=== PATIENT | female | born 1930 | race Caucasian/White ===

== ENCOUNTER 2017-08-28 19:37 | Inpatient (IN) | payer MEDICARE, OTHER ==
[~2017-08-28] VITALS: Ht 165.1 cm; Wt 72.4 kg
[2017-08-28] MEDS ORDERED: GLARGINE INSULIN SUBCUT (20:24)
[2017-08-28] MEDS ORDERED: ALBU2.5V38 IH (20:24)
[2017-08-28] MEDS ORDERED: LORA10TA7 GT (20:24)
[2017-08-28] MEDS ORDERED: PANT40TA4 GT (20:24)
[2017-08-28] MEDS ORDERED: KEPPRA GT (20:24)
[2017-08-28] MEDS ORDERED: METO50TA16 GT (20:24)
[2017-08-28] MEDS ORDERED: METF500T6 PO (20:24)
[2017-08-28] MEDS ORDERED: CLOP75TA33 GT (20:24)
[2017-08-28] MEDS ORDERED: ONDA4TAB10 GT (20:24)
[2017-08-28] MEDS ORDERED: CALC-25 GT (20:24)
[2017-08-28] MEDS ORDERED: LISI2.5T2 GT (20:24)
[2017-08-28] MEDS ORDERED: GUAI600T53 GT (20:24)
[2017-08-28] MEDS ORDERED: ACET325T53 GT (20:24)
[2017-08-28] MEDS ORDERED: IV NORMAL SALINE 1000 ML BAG IV ONE ×2 (21:00→21:30)
[2017-08-28 21:09] LABS: BASOPHILS # (AUTO) 0.3 K/uL (0.0-8.0); BASOPHILS % (AUTO) 1.4 % (0.0-2.0); EOSINOPHILS # (AUTO) 0.1 K/uL (0.0-0.7); EOSINOPHILS % (AUTO) 0.4 % (0.0-7.0); HEMATOCRIT 22.9 % (31.2-41.9); LYMPHOCYTES # (AUTO) 2.8 K/uL (20.0-40.0); LYMPHOCYTES % (AUTO) 15.3 % (20.5-51.5); MEAN CORPUSCULAR HEMOGLOBIN 20.4 uug (24.7-32.8); MEAN CORPUSCULAR HGB CONC 30 g/dL (32.3-35.6); MONOCYTES # (AUTO) 1.5 K/uL (2.0-10.0); MONOCYTES % (AUTO) 8.1 % (0.0-11.0); NEUTROPHILS # (AUTO) 13.7 K/uL (1.8-8.9); NEUTROPHILS % (AUTO) 74.8 % (38.5-71.5); PLATELET COUNT (AUTO) 501 K/uL (179-408); RED BLOOD CELL COUNT(AUTO) 3.42 MIL/uL (3.63-4.92); WHITE BLOOD COUNT (AUTO) 18.3 K/uL (3.8-11.8)
[2017-08-28 21:18] LABS: CARBON DIOXIDE 27 mmol/L (21-32); CHLORIDE 103 mmol/L (98-107); CREATININE 0.8 mg/dL (0.6-1.3); GLUCOSE 123 mg/dL (74-106); POTASSIUM 4.4 mmol/L (3.5-5.1); UREA NITROGEN, BLOOD 28 mg/dL (7-18)
[2017-08-28 21:19] LABS: LYMPHOCYTES % (MANUAL) 15 % (20-40); NEUTROPHILS % (MANUAL) 75 % (42-75)
[2017-08-28 21:20] LABS: EOSINOPHILS % (MANUAL) 1 % (0-8); MONOCYTES % (MANUAL) 9 % (2-10)
[2017-08-28 21:31] LABS: ALANINE AMINOTRANSFERASE 16 U/L (14-59); ALKALINE PHOSPHATASE 93 U/L (50-136); ASPARTATE AMINOTRANSFERASE 6 U/L (15-37); BILIRUBIN,DIRECT 0.1 mg/dL (0.0-0.2); BILIRUBIN,TOTAL 0.2 mg/dL (0.2-1.0)
[2017-08-28] MEDS ORDERED: AMIKACIN SULFATE 500 MG/2 ML VIAL IV ONE (21:45)
[2017-08-28] MEDS ORDERED: PANTOPRAZOLE SODIUM 40 MG VIAL IV ONE (21:45)
[2017-08-28] MEDS ORDERED: PANTOPRAZOLE SODIUM 40 MG VIAL ONE (21:56)
[2017-08-28] MEDS ORDERED: AMIKACIN SULFATE 500 MG/2 ML VIAL ONE (21:56)
[2017-08-29] VITALS (9 sets, daily range): BP systolic 101–133; BP diastolic 41–67
[2017-08-29] MEDS ORDERED: ONDANSETRON 4 MG/2 ML VIAL IV PRN (01:15)
[2017-08-29] MEDS ORDERED: MAGNESIUM HYDROXIDE 30 ML LIQUID UDC PO PRN (01:15)
[2017-08-29] MEDS ORDERED: LINEZOLID IV 600 MG in PREMIXED 1 EACH IV SCH (01:15)
[2017-08-29] MEDS ORDERED: HYDROCODONE/APAP 5-325MG TABLET PO PRN (01:15)
[2017-08-29] MEDS ORDERED: ALBUTEROL SULFATE 2.5 MG/3 ML NEBU IH PRN (01:15)
[2017-08-29] MEDS ORDERED: ACETAMINOPHEN 325 MG TABLET PO PRN (01:15)
[2017-08-29] MEDS ORDERED: GUAIFENESIN LA 600 MG TABLET.SA PO PRN ×2 (01:15→07:30)
[2017-08-29] MEDS ORDERED: Z GUARD REMEDY PASTE 57 GM TUBE TOP PRN (01:15)
[2017-08-29] MEDS: IV NS 1000 ML 1,000 ML IV PRN ×2 (03:37→21:52)
[2017-08-29] MEDS ORDERED: METFORMIN HCL 500 MG TABLET PO SCH (08:00)
[2017-08-29] MEDS ORDERED: PANTOPRAZOLE SODIUM 40 MG TABLET.DR PO SCH ×2 (09:00)
[2017-08-29] MEDS ORDERED: GLARGINE INSULIN SUBCUT SCH (09:00)
[2017-08-29] MEDS ORDERED: [UNRECOGNIZED DRUG - OTHER] GT SCH (09:00)
[2017-08-29] MEDS ORDERED: KEPPRA GT SCH (09:00)
[2017-08-29] MEDS ORDERED: CALCIUM CARBONATE GT SCH (09:00)
[2017-08-29] MEDS ORDERED: VITAMIN D2 GT SCH (09:00)
[2017-08-29] MEDS: LORATADINE 10 MG TABLET GT SCH (09:43)
[2017-08-29] MEDS: LISINOPRIL 5 MG TABLET GT SCH (09:44)
[2017-08-29] MEDS: CALCIUM CARB/VITAMIN D 250MG-125UNITS TABLET GT SCH (09:44)
[2017-08-29] MEDS: METOPROLOL TARTRATE 50 MG TABLET GT SCH ×2 (09:44→21:24)
[2017-08-29] MEDS ORDERED: GLUCERNA 1.2 1000ML LIQUID GT PRN (10:15)
[2017-08-29] MEDS ORDERED: MAGNESIUM HYDROXIDE 30 ML LIQUID UDC GT PRN (11:04)
[2017-08-29] MEDS ORDERED: HYDROCODONE/APAP 5-325MG TABLET GT PRN (11:04)
[2017-08-29] MEDS ORDERED: GUAIFENESIN SUGAR FREE 100 MG/5 ML UDC PO PRN (11:15)
[2017-08-29] MEDS ORDERED: GUAIFENESIN SUGAR FREE 100 MG/5 ML UDC GT PRN (11:15)
[2017-08-29] MEDS ORDERED: ACETAMINOPHEN 650 MG/20.3 ML LIQUID UDC GT PRN (11:15)
[2017-08-29] MEDS ORDERED: ACETAMINOPHEN 650 MG/20.3 ML LIQUID UDC PO PRN (11:15)
[2017-08-29] MEDS: PANTOPRAZOLE ORAL SUSPENSION 40 MG SUSPDR.PKT GT SCH (12:42)
[2017-08-29] MEDS: LEVETIRACETAM 500 MG/5 ML LIQUID UDC GT SCH ×2 (12:42→21:23)
[2017-08-29 12:55] LABS: CARBON DIOXIDE 24 mmol/L (21-32); CHLORIDE 108 mmol/L (98-107); CREATININE 0.6 mg/dL (0.6-1.3); GLUCOSE 94 mg/dL (74-106); POTASSIUM 3.9 mmol/L (3.5-5.1); UREA NITROGEN, BLOOD 20 mg/dL (7-18)
[2017-08-29 12:59] LABS: BASOPHILS # (AUTO) 0.1 K/uL (0.0-8.0); BASOPHILS % (AUTO) 0.5 % (0.0-2.0); EOSINOPHILS # (AUTO) 0.2 K/uL (0.0-0.7); EOSINOPHILS % (AUTO) 1.1 % (0.0-7.0); LYMPHOCYTES # (AUTO) 3.1 K/uL (20.0-40.0); LYMPHOCYTES % (AUTO) 18.9 % (20.5-51.5); MEAN CORPUSCULAR HEMOGLOBIN 20.2 uug (24.7-32.8); MEAN CORPUSCULAR HGB CONC 30 g/dL (32.3-35.6); MEAN CORPUSCULAR VOLUME 67.7 fL (75.5-95.3); MONOCYTES # (AUTO) 1.5 K/uL (2.0-10.0); MONOCYTES % (AUTO) 9.1 % (0.0-11.0); NEUTROPHILS # (AUTO) 11.5 K/uL (1.8-8.9); NEUTROPHILS % (AUTO) 70.4 % (38.5-71.5); PLATELET COUNT (AUTO) 416 K/uL (179-408); RED BLOOD CELL COUNT(AUTO) 2.96 MIL/uL (3.63-4.92); WHITE BLOOD COUNT (AUTO) 16.4 K/uL (3.8-11.8)
[2017-08-29 13:01] LABS: ALANINE AMINOTRANSFERASE 14 U/L (14-59); ALKALINE PHOSPHATASE 81 U/L (50-136); ASPARTATE AMINOTRANSFERASE 11 U/L (15-37); BILIRUBIN,TOTAL 0.3 mg/dL (0.2-1.0); IRON, SERUM 13 ug/dL (50-175); MAGNESIUM 1.9 mg/dL (1.8-2.4); PHOSPHOROUS 2.5 mg/dL (2.5-4.9); TOTAL PROTEIN, SERUM 6.9 g/dL (6.4-8.2)
[2017-08-29 13:55] LABS: EOSINOPHILS % (MANUAL) 1 % (0-8); LYMPHOCYTES % (MANUAL) 21 % (20-40); MONOCYTES % (MANUAL) 9 % (2-10); NEUTROPHILS % (MANUAL) 69 % (42-75)
[2017-08-29] MEDS: LINEZOLID IV 600 MG in PREMIXED 1 EACH IV SCH (17:09)
[2017-08-29] MEDS: METFORMIN HCL 500 MG TABLET GT SCH (18:01)
[2017-08-29] MEDS ORDERED: DOSING PER PHARMACY-TOBRAMY NEB/INHALATION XX PRN (19:45)
[2017-08-29] MEDS ORDERED: NORMAL SALINE IV SCH (21:00)
[2017-08-29] MEDS ORDERED: TOBRAMYCIN SULFATE IV SCH (21:00)
[2017-08-29] MEDS: NORMAL SALINE IV SCH (21:52)
[2017-08-29] MEDS: TOBRAMYCIN SULFATE IV SCH (21:52)
[2017-08-29] MEDS ORDERED: DEXTROSE 50% 50 ML DISP.SYRIN IV PRN (22:00)
[2017-08-29] MEDS: INSULIN GLARGINE,HUM 300 UNITS/3 ML CARTRIDGE SQ SCH (22:25)
[2017-08-30] MEDS: BLOOD SUGAR DIAGNOSTIC 1 EACH STRIP VI SCH ×4 (00:49→17:49)
[2017-08-30] MEDS: LINEZOLID IV 600 MG in PREMIXED 1 EACH IV SCH ×2 (03:15→15:51)
[2017-08-30 04:00] VITALS: BP_SYST 119; BP_SYST 126; BP_DIAS 57; BP_DIAS 78
[2017-08-30] MEDS: PANTOPRAZOLE ORAL SUSPENSION 40 MG SUSPDR.PKT GT SCH (05:19)
[2017-08-30 06:27] LABS: BASOPHILS # (AUTO) 0.1 K/uL (0.0-8.0); BASOPHILS % (AUTO) 0.6 % (0.0-2.0); EOSINOPHILS # (AUTO) 0.2 K/uL (0.0-0.7); EOSINOPHILS % (AUTO) 1.2 % (0.0-7.0); HEMATOCRIT 25.5 % (31.2-41.9); HEMOGLOBIN 8.2 g/dL (10.9-14.3); LYMPHOCYTES # (AUTO) 2.2 K/uL (20.0-40.0); LYMPHOCYTES % (AUTO) 10.8 % (20.5-51.5); MEAN CORPUSCULAR HEMOGLOBIN 22.7 uug (24.7-32.8); MEAN CORPUSCULAR HGB CONC 32 g/dL (32.3-35.6); MEAN CORPUSCULAR VOLUME 70.8 fL (75.5-95.3); MONOCYTES % (AUTO) 10.1 % (0.0-11.0); NEUTROPHILS # (AUTO) 15.6 K/uL (1.8-8.9); NEUTROPHILS % (AUTO) 77.3 % (38.5-71.5); PLATELET COUNT (AUTO) 383 K/uL (179-408); RED BLOOD CELL COUNT(AUTO) 3.59 MIL/uL (3.63-4.92); WHITE BLOOD COUNT (AUTO) 20.2 K/uL (3.8-11.8)
[2017-08-30 08:10] LABS: BAND % (MANUAL) 2 % (0-10); EOSINOPHILS % (MANUAL) 2 % (0-8); LYMPHOCYTES % (MANUAL) 8 % (20-40); MONOCYTES % (MANUAL) 11 % (2-10); NEUTROPHILS % (MANUAL) 77 % (42-75)
[2017-08-30 08:33] LABS: THYROID STIMULATING HORMONE 3.476 mIU/mL (0.358-3.740)
[2017-08-30] MEDS: LEVETIRACETAM 500 MG/5 ML LIQUID UDC GT SCH ×2 (08:42→20:54)
[2017-08-30] MEDS: LORATADINE 10 MG TABLET GT SCH (08:42)
[2017-08-30] MEDS: CALCIUM CARB/VITAMIN D 250MG-125UNITS TABLET GT SCH (08:42)
[2017-08-30] MEDS: METFORMIN HCL 500 MG TABLET GT SCH ×2 (08:42→17:50)
[2017-08-30] MEDS: LISINOPRIL 5 MG TABLET GT SCH (08:50)
[2017-08-30] MEDS: METOPROLOL TARTRATE 50 MG TABLET GT SCH ×2 (08:51→20:57)
[2017-08-30 08:56] LABS: CARBON DIOXIDE 21 mmol/L (21-32); CHLORIDE 105 mmol/L (98-107); CHOLESTEROL 89 mg/dL (<200); CREATININE 0.8 mg/dL (0.6-1.3); GLUCOSE 129 mg/dL (74-106); HDL CHOLESTEROL 27 mg/dL (40-60); MAGNESIUM 1.7 mg/dL (1.8-2.4); PHOSPHOROUS 2.7 mg/dL (2.5-4.9); POTASSIUM 3.9 mmol/L (3.5-5.1); TRIGLYCERIDES 104 MG/DL (30-150); UREA NITROGEN, BLOOD 15 mg/dL (7-18)
[2017-08-30] MEDS ORDERED: MAGNESIUM OXIDE 400 MG TABLET GT ONE (10:15)
[2017-08-30 11:04] VITALS: BP 115/50
[2017-08-30] MEDS: NORMAL SALINE IV SCH (12:40)
[2017-08-30] MEDS: TOBRAMYCIN SULFATE IV SCH (12:40)
[2017-08-30] MEDS ORDERED: FUROSEMIDE 20 MG/2 ML VIAL IV ONE (14:45)
[2017-08-30 16:24] VITALS: BP 109/46
[2017-08-30] MEDS: INSULIN REGULAR, HUMAN 300 UNIT/3 ML VIAL SQ PRN (17:55)
[2017-08-30 19:40] VITALS: BP 123/48
[2017-08-30] MEDS: MUPIROCIN 2% OINT 22 GM TUBE NS SCH (20:54)
[2017-08-30] MEDS: INSULIN GLARGINE,HUM 300 UNITS/3 ML CARTRIDGE SQ SCH (21:25)
[2017-08-31] MEDS: BLOOD SUGAR DIAGNOSTIC 1 EACH STRIP VI SCH ×4 (01:03→18:13)
[2017-08-31] MEDS: NORMAL SALINE IV SCH ×2 (01:04→15:53)
[2017-08-31] MEDS: TOBRAMYCIN SULFATE IV SCH ×2 (01:04→15:53)
[2017-08-31] MEDS: LINEZOLID IV 600 MG in PREMIXED 1 EACH IV SCH (03:06)
[2017-08-31 04:04] VITALS: BP 122/55
[2017-08-31] MEDS: PANTOPRAZOLE ORAL SUSPENSION 40 MG SUSPDR.PKT GT SCH (05:38)
[2017-08-31 07:10] LABS: BASOPHILS # (AUTO) 0.1 K/uL (0.0-8.0); BASOPHILS % (AUTO) 0.6 % (0.0-2.0); EOSINOPHILS # (AUTO) 0.4 K/uL (0.0-0.7); EOSINOPHILS % (AUTO) 2.5 % (0.0-7.0); HEMATOCRIT 28.7 % (31.2-41.9); HEMOGLOBIN 8.8 g/dL (10.9-14.3); LYMPHOCYTES % (AUTO) 12.2 % (20.5-51.5); MEAN CORPUSCULAR HEMOGLOBIN 22.2 uug (24.7-32.8); MEAN CORPUSCULAR HGB CONC 31 g/dL (32.3-35.6); MEAN CORPUSCULAR VOLUME 72.1 fL (75.5-95.3); MONOCYTES # (AUTO) 1.4 K/uL (2.0-10.0); MONOCYTES % (AUTO) 8.6 % (0.0-11.0); NEUTROPHILS # (AUTO) 12.5 K/uL (1.8-8.9); NEUTROPHILS % (AUTO) 76.1 % (38.5-71.5); PLATELET COUNT (AUTO) 410 K/uL (179-408); RED BLOOD CELL COUNT(AUTO) 3.98 MIL/uL (3.63-4.92); WHITE BLOOD COUNT (AUTO) 16.5 K/uL (3.8-11.8)
[2017-08-31 07:21] LABS: ALANINE AMINOTRANSFERASE 18 U/L (14-59); ALKALINE PHOSPHATASE 106 U/L (50-136); ASPARTATE AMINOTRANSFERASE 18 U/L (15-37); BILIRUBIN,TOTAL 0.4 mg/dL (0.2-1.0); CARBON DIOXIDE 26 mmol/L (21-32); CHLORIDE 101 mmol/L (98-107); CREATININE 0.8 mg/dL (0.6-1.3); GLUCOSE 146 mg/dL (74-106); MAGNESIUM 1.8 mg/dL (1.8-2.4); PHOSPHOROUS 3.3 mg/dL (2.5-4.9); POTASSIUM 3.2 mmol/L (3.5-5.1); TOTAL PROTEIN, SERUM 7.6 g/dL (6.4-8.2); UREA NITROGEN, BLOOD 11 mg/dL (7-18)
[2017-08-31 07:59] LABS: EOSINOPHILS % (MANUAL) 3 % (0-8); LYMPHOCYTES % (MANUAL) 12 % (20-40); MONOCYTES % (MANUAL) 9 % (2-10); NEUTROPHILS % (MANUAL) 76 % (42-75)
[2017-08-31] MEDS: METFORMIN HCL 500 MG TABLET GT SCH ×2 (08:08→18:40)
[2017-08-31] MEDS: IV NS 1000 ML 1,000 ML IV PRN (09:21)
[2017-08-31] MEDS: CALCIUM CARB/VITAMIN D 250MG-125UNITS TABLET GT SCH (09:22)
[2017-08-31] MEDS: METOPROLOL TARTRATE 50 MG TABLET GT SCH ×2 (09:30→20:22)
[2017-08-31] MEDS ORDERED: POTASSIUM CHLORIDE 20 MEQ POWDER PACKET GT ONE (09:30)
[2017-08-31] MEDS: LORATADINE 10 MG TABLET GT SCH (09:30)
[2017-08-31] MEDS: LEVETIRACETAM 500 MG/5 ML LIQUID UDC GT SCH ×2 (09:31→20:19)
[2017-08-31] MEDS: LISINOPRIL 5 MG TABLET GT SCH (09:31)
[2017-08-31] MEDS: MUPIROCIN 2% OINT 22 GM TUBE NS SCH ×2 (09:46→20:22)
[2017-08-31] MEDS ORDERED: GLUCERNA 1.2 1000ML LIQUID GT PRN (09:53)
[2017-08-31 11:09] VITALS: BP 129/55
[2017-08-31] MEDS: INSULIN REGULAR, HUMAN 300 UNIT/3 ML VIAL SQ PRN ×2 (11:51→18:40)
[2017-08-31 15:10] VITALS: BP 139/64
[2017-08-31 19:00] VITALS: BP 134/76
[2017-08-31] MEDS: LINEZOLID 600 MG TABLET PO SCH (20:19)
[2017-08-31] MEDS: INSULIN GLARGINE,HUM 300 UNITS/3 ML CARTRIDGE SQ SCH (20:28)
[2017-09-01] MEDS: BLOOD SUGAR DIAGNOSTIC 1 EACH STRIP VI SCH ×4 (00:11→17:22)
[2017-09-01] MEDS: IV NS 1000 ML 1,000 ML IV PRN ×2 (00:12→15:12)
[2017-09-01] MEDS: TOBRAMYCIN SULFATE IV SCH ×2 (01:16→14:14)
[2017-09-01] MEDS: NORMAL SALINE IV SCH ×2 (01:16→14:14)
[2017-09-01 04:00] VITALS: BP 135/60
[2017-09-01] MEDS: PANTOPRAZOLE ORAL SUSPENSION 40 MG SUSPDR.PKT GT SCH (05:37)
[2017-09-01 06:37] LABS: BASOPHILS # (AUTO) 0.1 K/uL (0.0-8.0); BASOPHILS % (AUTO) 0.8 % (0.0-2.0); EOSINOPHILS # (AUTO) 0.6 K/uL (0.0-0.7); EOSINOPHILS % (AUTO) 3.2 % (0.0-7.0); HEMATOCRIT 27.9 % (31.2-41.9); HEMOGLOBIN 8.8 g/dL (10.9-14.3); LYMPHOCYTES # (AUTO) 2.5 K/uL (20.0-40.0); LYMPHOCYTES % (AUTO) 14.5 % (20.5-51.5); MEAN CORPUSCULAR HEMOGLOBIN 22.8 uug (24.7-32.8); MEAN CORPUSCULAR HGB CONC 32 g/dL (32.3-35.6); MEAN CORPUSCULAR VOLUME 71.9 fL (75.5-95.3); MONOCYTES # (AUTO) 1.2 K/uL (2.0-10.0); MONOCYTES % (AUTO) 6.9 % (0.0-11.0); NEUTROPHILS # (AUTO) 13.1 K/uL (1.8-8.9); NEUTROPHILS % (AUTO) 74.6 % (38.5-71.5); PLATELET COUNT (AUTO) 378 K/uL (179-408); RED BLOOD CELL COUNT(AUTO) 3.89 MIL/uL (3.63-4.92); WHITE BLOOD COUNT (AUTO) 17.6 K/uL (3.8-11.8)
[2017-09-01 07:03] LABS: ALANINE AMINOTRANSFERASE 14 U/L (14-59); ALKALINE PHOSPHATASE 95 U/L (50-136); ASPARTATE AMINOTRANSFERASE 12 U/L (15-37); BILIRUBIN,TOTAL 0.4 mg/dL (0.2-1.0); CARBON DIOXIDE 27 mmol/L (21-32); CHLORIDE 105 mmol/L (98-107); CREATININE 0.8 mg/dL (0.6-1.3); GLUCOSE 137 mg/dL (74-106); MAGNESIUM 1.8 mg/dL (1.8-2.4); PHOSPHOROUS 2.9 mg/dL (2.5-4.9); POTASSIUM 4.2 mmol/L (3.5-5.1); TOTAL PROTEIN, SERUM 7.2 g/dL (6.4-8.2); UREA NITROGEN, BLOOD 15 mg/dL (7-18)
[2017-09-01] MEDS: LORATADINE 10 MG TABLET GT SCH (09:04)
[2017-09-01] MEDS: LEVETIRACETAM 500 MG/5 ML LIQUID UDC GT SCH ×2 (09:05→20:28)
[2017-09-01] MEDS: LISINOPRIL 5 MG TABLET GT SCH (09:07)
[2017-09-01] MEDS: CALCIUM CARB/VITAMIN D 250MG-125UNITS TABLET GT SCH (09:07)
[2017-09-01] MEDS: LINEZOLID 600 MG TABLET PO SCH ×2 (09:07→20:28)
[2017-09-01] MEDS: METOPROLOL TARTRATE 50 MG TABLET GT SCH ×2 (09:07→20:28)
[2017-09-01] MEDS: MUPIROCIN 2% OINT 22 GM TUBE NS SCH ×2 (09:09→20:29)
[2017-09-01 11:34] VITALS: BP 138/72
[2017-09-01] MEDS: INSULIN REGULAR, HUMAN 300 UNIT/3 ML VIAL SQ PRN (11:45)
[2017-09-01 15:44] VITALS: BP 143/72
[2017-09-01 19:00] VITALS: BP 140/60
[2017-09-01] MEDS: INSULIN GLARGINE,HUM 300 UNITS/3 ML CARTRIDGE SQ SCH (20:30)
[2017-09-01] MEDS ORDERED: FUROSEMIDE 20 MG/2 ML VIAL IV ONE (20:30)
[2017-09-01] MEDS: ACIDOPHILUS/BULGARICUS CHEW TAB GT SCH (22:00)
[2017-09-02] MEDS: NORMAL SALINE IV SCH ×2 (02:13→14:39)
[2017-09-02] MEDS: TOBRAMYCIN SULFATE IV SCH ×2 (02:13→14:39)
[2017-09-02 04:00] VITALS: BP_SYST 135; BP_SYST 137; BP_DIAS 50; BP_DIAS 65
[2017-09-02] MEDS: PANTOPRAZOLE ORAL SUSPENSION 40 MG SUSPDR.PKT GT SCH (06:06)
[2017-09-02 06:48] LABS: CARBON DIOXIDE 28 mmol/L (21-32); CHLORIDE 103 mmol/L (98-107); CREATININE 0.7 mg/dL (0.6-1.3); GLUCOSE 126 mg/dL (74-106); MAGNESIUM 1.8 mg/dL (1.8-2.4); PHOSPHOROUS 3.8 mg/dL (2.5-4.9); POTASSIUM 3.8 mmol/L (3.5-5.1); UREA NITROGEN, BLOOD 14 mg/dL (7-18); URIC ACID 4.7 mg/dL (2.6-6.0)
[2017-09-02 06:51] LABS: BASOPHILS # (AUTO) 0.1 K/uL (0.0-8.0); BASOPHILS % (AUTO) 0.5 % (0.0-2.0); EOSINOPHILS # (AUTO) 0.7 K/uL (0.0-0.7); EOSINOPHILS % (AUTO) 4.4 % (0.0-7.0); HEMATOCRIT 27.2 % (31.2-41.9); HEMOGLOBIN 8.7 g/dL (10.9-14.3); LYMPHOCYTES # (AUTO) 2.7 K/uL (20.0-40.0); LYMPHOCYTES % (AUTO) 17.9 % (20.5-51.5); MEAN CORPUSCULAR HEMOGLOBIN 22.8 uug (24.7-32.8); MEAN CORPUSCULAR HGB CONC 32 g/dL (32.3-35.6); MEAN CORPUSCULAR VOLUME 70.9 fL (75.5-95.3); MONOCYTES # (AUTO) 1.4 K/uL (2.0-10.0); MONOCYTES % (AUTO) 9.1 % (0.0-11.0); NEUTROPHILS # (AUTO) 10.3 K/uL (1.8-8.9); NEUTROPHILS % (AUTO) 68.1 % (38.5-71.5); PLATELET COUNT (AUTO) 438 K/uL (179-408); RED BLOOD CELL COUNT(AUTO) 3.83 MIL/uL (3.63-4.92); WHITE BLOOD COUNT (AUTO) 15.2 K/uL (3.8-11.8)
[2017-09-02 07:06] LABS: *BILIRUBIN,URIN NEGATIVE (NEGATIVE); *BLOOD, URINE 1+ (NEGATIVE); *CLARITY,URINE CLOUDY (CLEAR); *COLOR,URINE YELLOW (YELLOW); *KETONES,URINE NEGATIVE (NEGATIVE); *PROTEIN,URINE NEGATIVE (NEGATIVE); *UROBILINOGEN,URINE 0.2 E.U./dl (NORMAL); LEUKOCYTE ESTERASE ,URINE 2+ (NEGATIVE); NITRITE, URINE NEGATIVE (NEGATIVE); PH,URINE 7.5 (5.0-8.0); UGLUCOSE NEGATIVE (NEGATIVE)
[2017-09-02 07:18] LABS: BACTERIA,URINE FEW /HPF (NONE SEEN); SQUAMOUS EPITHELIAL CELL,UR FEW /HPF (NONE SEEN); WBC,URINE 20-50 /HPF (0-3)
[2017-09-02 07:44] LABS: BAND % (MANUAL) 2 % (0-10); EOSINOPHILS % (MANUAL) 5 % (0-8); LYMPHOCYTES % (MANUAL) 19 % (20-40); MONOCYTES % (MANUAL) 7 % (2-10); NEUTROPHILS % (MANUAL) 67 % (42-75)
[2017-09-02] MEDS: LINEZOLID 600 MG TABLET PO SCH (08:06)
[2017-09-02] MEDS: LEVETIRACETAM 500 MG/5 ML LIQUID UDC GT SCH (08:06)
[2017-09-02] MEDS: METOPROLOL TARTRATE 50 MG TABLET GT SCH (08:07)
[2017-09-02] MEDS: ACIDOPHILUS/BULGARICUS CHEW TAB GT SCH (08:07)
[2017-09-02] MEDS: CALCIUM CARB/VITAMIN D 250MG-125UNITS TABLET GT SCH (08:07)
[2017-09-02] MEDS: LISINOPRIL 5 MG TABLET GT SCH (08:07)
[2017-09-02] MEDS: LORATADINE 10 MG TABLET GT SCH (08:07)
[2017-09-02] MEDS: MUPIROCIN 2% OINT 22 GM TUBE NS SCH (08:10)
[2017-09-02 08:26] LABS: *OCCULT BLOOD STOOL NEGATIVE (NEGATIVE)
[2017-09-02] MEDS ORDERED: SOD FERRIC GLUC COMPLX/SUCROSE 125 MG in IV NORMAL SALINE 100 ML IV ONE (10:00)
[2017-09-02] MEDS ORDERED: FUROSEMIDE 20 MG/2 ML VIAL IV ONE (10:45)
[2017-09-02 11:22] VITALS: BP 139/67
[2017-09-02] MEDS ORDERED: LEVE100S GT (15:02)
[2017-09-02] MEDS ORDERED: ACID1TAB4 GT (15:02)
[2017-09-02] MEDS ORDERED: MULT1TAB73 GT (15:02)
[2017-09-02] MEDS ORDERED: TOBR40VI2 XX (15:02)
[2017-09-02] MEDS ORDERED: NUT.237L30 GT (15:02)
[2017-09-02] MEDS ORDERED: ACET650S26 GT (15:02)
[2017-09-02] MEDS ORDERED: MAGN400O6 GT (15:02)
[2017-09-02] MEDS ORDERED: Insulin Glargine,Hum SQ (15:02)
[2017-09-02] MEDS ORDERED: LINE600T PO (15:02)
[2017-09-02] MEDS ORDERED: METO50TA16 GT (15:02)
[2017-09-02] MEDS ORDERED: FURO-152 GT (15:03)
[2017-09-02] MEDS ORDERED: POTA10TA15 GT (15:04)
[2017-09-02 15:18] VITALS: BP 148/61
[2017-09-02 18:18] VITALS: BP 142/59
[2017-09-02] MEDS ORDERED: INSULIN GLARGINE,HUM 300 UNITS/3 ML CARTRIDGE SQ SCH (21:00)
== END 2017-09-02 18:15 | DRG 871 ==
LOC: ER 19:37 → TELE 08-29 01:55 → MED 08-29 22:58
PROVIDERS: ADMIT Nurse Practitioner Acute Care; ATTEND Internal Medicine
PROC: 30233N1 Transfusion of Nonautologous Red Blood Cells into Peripheral Vein, Percutaneous Approach (ICD-10-PCS; principal; 2017-08-29)
DX: A41.9 Sepsis, unspecified organism (principal); G92 Toxic encephalopathy; I50.23 Acute on chronic systolic (congestive) heart failure; E46 Unspecified protein-calorie malnutrition; E87.2 Acidosis; D68.59 Other primary thrombophilia; E87.1 Hypo-osmolality and hyponatremia; N39.0 Urinary tract infection, site not specified; K92.2 Gastrointestinal hemorrhage, unspecified; I69.351 Hemiplegia and hemiparesis following cerebral infarction affecting right dominant side; E86.0 Dehydration; E11.9 Type 2 diabetes mellitus without complications; D50.9 Iron deficiency anemia, unspecified; E78.5 Hyperlipidemia, unspecified; B95.2 Enterococcus as the cause of diseases classified elsewhere; B96.4 Proteus (mirabilis) (morganii) as the cause of diseases classified elsewhere; E87.6 Hypokalemia; G40.909 Epilepsy, unspecified, not intractable, without status epilepticus; K21.9 Gastro-esophageal reflux disease without esophagitis; M81.0 Age-related osteoporosis without current pathological fracture; M19.90 Unspecified osteoarthritis, unspecified site; R13.10 Dysphagia, unspecified; Z88.0 Allergy status to penicillin; Z79.84 Long term (current) use of oral hypoglycemic drugs; R19.5 Other fecal abnormalities; I69.320 Aphasia following cerebral infarction; I25.10 Atherosclerotic heart disease of native coronary artery without angina pectoris; I11.0 Hypertensive heart disease with heart failure; F01.50 Vascular dementia, unspecified severity, without behavioral disturbance, psychotic disturbance, mood disturbance, and anxiety; Z16.21 Resistance to vancomycin; Z87.891 Personal history of nicotine dependence; Z22.322 Carrier or suspected carrier of Methicillin resistant Staphylococcus aureus; Z93.1 Gastrostomy status; Z68.26 Body mass index [BMI] 26.0-26.9, adult; I34.0 Nonrheumatic mitral (valve) insufficiency; Z66 Do not resuscitate
CPT/HCPCS: 36415; 70030-TC; 71045; 80200; 82378; 83550; 83605; 83735; 84100; 84443; 84550; 85025; 85730; 86850; 86900; 86901; 86920; 87040; 87077; 87086; 92523; 92610; 93005; 93307; A4663; C1758; C9113; J0278; J1815; J1940; J2020; J2916; J3260; J3490; J7030; J7050; P9016-BL; P9021

== ENCOUNTER 2017-10-27 22:32 | Inpatient (IN) | payer MEDICARE, OTHER ==
[~2017-10-27] VITALS: Ht 162.6 cm; Wt 71.2 kg
[~2017-10-27 22:32] MED LIST: ACET650S26 GT; ACID1TAB4 GT; ALBU2.5V38 IH; CALC-25 GT; CLOP75TA33 GT; FURO-152 GT; Insulin Glargine,Hum SQ; LEVE100S GT; LINE600T PO; LISI2.5T2 GT; LORA10TA7 GT; MAGN400O6 GT; METO50TA16 GT; MULT1TAB73 GT; NUT.237L30 GT; PANT40TA4 GT; POTA10TA15 GT; TOBR40VI2 XX
[2017-10-27] MEDS ORDERED: DEXAMETHASONE SOD PHOSPHATE 4 MG INJ IV ONE (23:00)
[2017-10-27] MEDS ORDERED: IV NORMAL SALINE 1000 ML BAG IV ONE (23:00)
[2017-10-27 23:39] LABS: BASOPHILS # (AUTO) 0.2 K/uL (0.0-8.0); BASOPHILS % (AUTO) 1.3 % (0.0-2.0); EOSINOPHILS # (AUTO) 0.1 K/uL (0.0-0.7); EOSINOPHILS % (AUTO) 0.8 % (0.0-7.0); HEMATOCRIT 32.8 % (31.2-41.9); HEMOGLOBIN 10.3 g/dL (10.9-14.3); LYMPHOCYTES # (AUTO) 1.4 K/uL (20.0-40.0); LYMPHOCYTES % (AUTO) 10.2 % (20.5-51.5); MEAN CORPUSCULAR HGB CONC 31 g/dL (32.3-35.6); MEAN CORPUSCULAR VOLUME 76.7 fL (75.5-95.3); MONOCYTES # (AUTO) 0.7 K/uL (2.0-10.0); MONOCYTES % (AUTO) 5.4 % (0.0-11.0); NEUTROPHILS # (AUTO) 11.1 K/uL (1.8-8.9); NEUTROPHILS % (AUTO) 82.3 % (38.5-71.5); PLATELET COUNT (AUTO) 362 K/uL (179-408); RED BLOOD CELL COUNT(AUTO) 4.27 MIL/uL (3.63-4.92); WHITE BLOOD COUNT (AUTO) 13.5 K/uL (3.8-11.8)
[2017-10-27] MEDS ORDERED: DEXAMETHASONE SOD PHOSPHATE 10 MG INJ ONE (23:55)
[2017-10-27] MEDS ORDERED: AMIO200T4 GT (23:56)
[2017-10-27] MEDS ORDERED: IPRA3AMP23 IH (23:56)
[2017-10-27] MEDS ORDERED: ACET160L33 GT (23:56)
[2017-10-27] MEDS ORDERED: PANT40TA4 GT (23:56)
[2017-10-27] MEDS ORDERED: MULT-213 GT (23:56)
[2017-10-27] MEDS ORDERED: LEVE500S9 PO (23:56)
[2017-10-27] MEDS ORDERED: BLOO-140 IN (23:56)
[2017-10-27] MEDS ORDERED: LORA-114 GT (23:56)
[2017-10-27] MEDS ORDERED: INSU100V7 SQ (23:56)
[2017-10-27] MEDS ORDERED: CALC-25 GT (23:56)
[2017-10-27] MEDS ORDERED: POTA20PA34 GT (23:56)
[2017-10-27] MEDS ORDERED: METO25TA6 PO (23:56)
[2017-10-27] MEDS ORDERED: MAGN400O6 PO (23:56)
[2017-10-27] MEDS ORDERED: FERR325T28 GT (23:56)
[2017-10-27] MEDS ORDERED: FURO20TA4 GT (23:56)
[2017-10-27] MEDS ORDERED: APIX2.5T GT (23:56)
[2017-10-27] MEDS ORDERED: LEVA0.6320 IH (23:56)
[2017-10-28 00:15] LABS: CARBON DIOXIDE 36 mmol/L (21-32); CHLORIDE 105 mmol/L (98-107); CREATININE 0.7 mg/dL (0.6-1.3); GLUCOSE 136 mg/dL (74-106); POTASSIUM 4.5 mmol/L (3.5-5.1); UREA NITROGEN, BLOOD 35 mg/dL (7-18)
[2017-10-28 00:28] LABS: ALANINE AMINOTRANSFERASE 20 U/L (14-59); ALKALINE PHOSPHATASE 95 U/L (50-136); ASPARTATE AMINOTRANSFERASE 15 U/L (15-37); BILIRUBIN,DIRECT 0.1 mg/dL (0.0-0.2); BILIRUBIN,TOTAL 0.4 mg/dL (0.2-1.0); TOTAL PROTEIN, SERUM 8.7 g/dL (6.4-8.2)
[2017-10-28] MEDS ORDERED: DIATR MEGLU/DIATRIZOATE SODIUM 120 ML BOTTLE PO ONE (00:30)
[2017-10-28] MEDS ORDERED: METRONIDAZOLE 500 MG/NS 100ML 100 ML IV ONE ×2 (01:00→01:09)
[2017-10-28] MEDS ORDERED: LEVOFLOXACIN 500 MG/D5W 100ML PIGGYBACK IV ONE (01:00)
[2017-10-28] MEDS ORDERED: MAGNESIUM HYDROXIDE 30 ML LIQUID UDC PO PRN (03:00)
[2017-10-28] MEDS ORDERED: HYDROCODONE/APAP 5-325MG TABLET PO PRN (03:00)
[2017-10-28] MEDS ORDERED: ACETAMINOPHEN 325 MG TABLET PO PRN (03:00)
[2017-10-28] MEDS ORDERED: ONDANSETRON 4 MG/2 ML VIAL IV PRN (03:00)
[2017-10-28] MEDS: IV 1/2NS 1000 ML 1,000 ML IV PRN ×2 (03:19→20:01)
[2017-10-28] MEDS ORDERED: LEVOFLOXACIN 750MG/D5W 750 MG in PREMIXED 1 EACH IV SCH (04:00)
[2017-10-28] MEDS ORDERED: LEVOFLOXACIN 750MG/D5W 150 ML IV ONE (04:11)
[2017-10-28 04:52] VITALS: BP 141/70
[2017-10-28 10:48] LABS: *BILIRUBIN,URIN NEGATIVE (NEGATIVE); *BLOOD, URINE 3+ (NEGATIVE); *CLARITY,URINE SLIGHTLY CLOUDY (CLEAR); *COLOR,URINE YELLOW (YELLOW); *KETONES,URINE NEGATIVE (NEGATIVE); *PROTEIN,URINE 1+ (NEGATIVE); *UROBILINOGEN,URINE 0.2 E.U./dl (NORMAL); LEUKOCYTE ESTERASE ,URINE 1+ (NEGATIVE); NITRITE, URINE NEGATIVE (NEGATIVE); PH,URINE 8.5 (5.0-8.0); UGLUCOSE NEGATIVE (NEGATIVE)
[2017-10-28 10:53] LABS: BACTERIA,URINE FEW /HPF (NONE SEEN); RBC,URINE TNTC /HPF (0-3); SQUAMOUS EPITHELIAL CELL,UR FEW /HPF (NONE SEEN)
[2017-10-28 11:58] VITALS: BP 139/69
[2017-10-28 16:32] VITALS: BP 119/75
[2017-10-28 20:00] VITALS: BP 133/66
[2017-10-29 04:52] VITALS: BP 120/65
[2017-10-29 06:29] LABS: BASOPHILS % (AUTO) 0.1 % (0.0-2.0); EOSINOPHILS % (AUTO) 0.1 % (0.0-7.0); HEMATOCRIT 29.4 % (31.2-41.9); HEMOGLOBIN 9.3 g/dL (10.9-14.3); LYMPHOCYTES # (AUTO) 1.3 K/uL (20.0-40.0); LYMPHOCYTES % (AUTO) 15.3 % (20.5-51.5); MEAN CORPUSCULAR HEMOGLOBIN 24.4 uug (24.7-32.8); MEAN CORPUSCULAR HGB CONC 32 g/dL (32.3-35.6); MONOCYTES # (AUTO) 0.9 K/uL (2.0-10.0); MONOCYTES % (AUTO) 10.7 % (0.0-11.0); NEUTROPHILS # (AUTO) 6.1 K/uL (1.8-8.9); NEUTROPHILS % (AUTO) 73.8 % (38.5-71.5); PLATELET COUNT (AUTO) 274 K/uL (179-408); RED BLOOD CELL COUNT(AUTO) 3.82 MIL/uL (3.63-4.92); WHITE BLOOD COUNT (AUTO) 8.3 K/uL (3.8-11.8)
[2017-10-29 06:46] LABS: ALANINE AMINOTRANSFERASE 20 U/L (14-59); ALKALINE PHOSPHATASE 76 U/L (50-136); ASPARTATE AMINOTRANSFERASE 18 U/L (15-37); BILIRUBIN,TOTAL 0.5 mg/dL (0.2-1.0); CARBON DIOXIDE 27 mmol/L (21-32); CHLORIDE 110 mmol/L (98-107); CHOLESTEROL 147 mg/dL (<200); CREATININE 0.7 mg/dL (0.6-1.3); GLUCOSE 125 mg/dL (74-106); HDL CHOLESTEROL 36 mg/dL (40-60); MAGNESIUM 2.1 mg/dL (1.8-2.4); PHOSPHOROUS 2.5 mg/dL (2.5-4.9); POTASSIUM 3.7 mmol/L (3.5-5.1); TOTAL PROTEIN, SERUM 7.2 g/dL (6.4-8.2); TRIGLYCERIDES 99 MG/DL (30-150); UREA NITROGEN, BLOOD 28 mg/dL (7-18)
[2017-10-29] MEDS: IV 1/2NS 1000 ML 1,000 ML IV PRN (10:00)
[2017-10-29 11:37] VITALS: BP 117/52
[2017-10-29] MEDS: LEVOFLOXACIN 500 MG/D5W 100 ML IV SCH (12:21)
[2017-10-29] MEDS ORDERED: FUROSEMIDE 20 MG/2 ML VIAL IV ONE (15:15)
[2017-10-29 15:45] VITALS: BP 121/75
[2017-10-29] MEDS: POTASSIUM CHLORIDE 20 MEQ in IV D5/ 0.9% NACL 1,000 ML IV PRN (18:20)
[2017-10-29 20:01] VITALS: BP 101/62
[2017-10-30 04:02] VITALS: BP 144/60
[2017-10-30] MEDS ORDERED: LEVOFLOXACIN 750MG/D5W 750 MG in PREMIXED 1 EACH IV SCH (09:00)
[2017-10-30] MEDS: LEVOFLOXACIN 500 MG/D5W 100 ML IV SCH (11:24)
[2017-10-30 11:32] VITALS: BP 155/69
[2017-10-30 15:38] VITALS: BP 113/55
[2017-10-30] MEDS: POTASSIUM CHLORIDE 20 MEQ in IV D5/ 0.9% NACL 1,000 ML IV PRN (15:56)
[2017-10-30 20:00] VITALS: BP 140/66
[2017-10-30] MEDS: LEVETIRACETAM IV 500 MG in IV DEXTROSE 5% 100 ML IV SCH (21:56)
[2017-10-30] MEDS ORDERED: FUROSEMIDE 20 MG/2 ML VIAL IV ONE (22:00)
[2017-10-30] MEDS ORDERED: FLUCONAZOLE 200 MG/NS 100ML IV 100 MG in PREMIXED 1 EACH IV SCH (22:00)
[2017-10-30] MEDS ORDERED: CEFAZOLIN 1 G VIAL ONE (22:40)
[2017-10-30] MEDS ORDERED: FLUCONAZOLE 200 MG/100 ML PIGGYBACK ONE (22:41)
[2017-10-31 05:06] VITALS: BP 154/79
[2017-10-31] MEDS: CEFAZOLIN IV SCH ×2 (05:09→15:07)
[2017-10-31] MEDS: NORMAL SALINE IV SCH ×2 (05:09→15:07)
[2017-10-31] MEDS: PANTOPRAZOLE SODIUM 40 MG VIAL IV SCH (06:32)
[2017-10-31 08:07] LABS: BASOPHILS # (AUTO) 0.1 K/uL (0.0-8.0); BASOPHILS % (AUTO) 0.8 % (0.0-2.0); EOSINOPHILS # (AUTO) 0.1 K/uL (0.0-0.7); EOSINOPHILS % (AUTO) 1.2 % (0.0-7.0); HEMATOCRIT 31.9 % (31.2-41.9); HEMOGLOBIN 10.3 g/dL (10.9-14.3); LYMPHOCYTES # (AUTO) 1.6 K/uL (20.0-40.0); LYMPHOCYTES % (AUTO) 15.6 % (20.5-51.5); MEAN CORPUSCULAR HEMOGLOBIN 24.9 uug (24.7-32.8); MEAN CORPUSCULAR HGB CONC 32 g/dL (32.3-35.6); MEAN CORPUSCULAR VOLUME 77.4 fL (75.5-95.3); MONOCYTES # (AUTO) 0.9 K/uL (2.0-10.0); MONOCYTES % (AUTO) 8.9 % (0.0-11.0); NEUTROPHILS # (AUTO) 7.5 K/uL (1.8-8.9); NEUTROPHILS % (AUTO) 73.5 % (38.5-71.5); PLATELET COUNT (AUTO) 270 K/uL (179-408); RED BLOOD CELL COUNT(AUTO) 4.13 MIL/uL (3.63-4.92); WHITE BLOOD COUNT (AUTO) 10.2 K/uL (3.8-11.8)
[2017-10-31 08:18] LABS: ALANINE AMINOTRANSFERASE 21 U/L (14-59); ALKALINE PHOSPHATASE 83 U/L (50-136); ASPARTATE AMINOTRANSFERASE 11 U/L (15-37); BILIRUBIN,TOTAL 0.5 mg/dL (0.2-1.0); CARBON DIOXIDE 32 mmol/L (21-32); CHLORIDE 107 mmol/L (98-107); CREATININE 0.5 mg/dL (0.6-1.3); GLUCOSE 136 mg/dL (74-106); MAGNESIUM 1.7 mg/dL (1.8-2.4); PHOSPHOROUS 2.3 mg/dL (2.5-4.9); UREA NITROGEN, BLOOD 17 mg/dL (7-18)
[2017-10-31] MEDS: Z GUARD REMEDY PASTE 57 GM TUBE TOP PRN (08:22)
[2017-10-31] MEDS ORDERED: MAGNESIUM SULFATE/D5W 100 ML IV SCH (09:00)
[2017-10-31] MEDS: LEVETIRACETAM IV 500 MG in IV DEXTROSE 5% 100 ML IV SCH ×2 (09:40→20:11)
[2017-10-31] MEDS: POTASSIUM CHLORIDE 50 ML IV SCH ×5 (09:42→17:41)
[2017-10-31 11:16] VITALS: BP 137/62
[2017-10-31] MEDS ORDERED: CLINDAMYCIN PHOSPHATE 600 MG/4 ML VIAL ONE (12:25)
[2017-10-31 13:42] VITALS: BP 153/62
[2017-10-31 15:00] VITALS: BP 141/59
[2017-10-31] MEDS ORDERED: NEUTRA PHOS PACKET GT ONE (15:45)
[2017-10-31] MEDS: GLUCERNA 1.2 1000ML LIQUID GT PRN (16:42)
[2017-10-31 19:00] VITALS: BP 128/71
[2017-10-31] MEDS ORDERED: LIDOCAINE HCL 2% 20 ML VIAL MC ONE (20:09)
[2017-10-31] MEDS ORDERED: ETOMIDATE 20 MG/10 ML VIAL MC ONE (20:09)
[2017-10-31] MEDS ORDERED: FLUCONAZOLE 200 MG/NS 100ML IV 100 MG in PREMIXED 1 EACH IV SCH (22:00)
[2017-10-31] MEDS: POTASSIUM CHLORIDE 20 MEQ in IV D5/ 0.9% NACL 1,000 ML IV PRN (23:53)
[2017-11-01] MEDS ORDERED: NORMAL SALINE IV ONE (01:30)
[2017-11-01] MEDS ORDERED: GENTAMICIN SULFATE IV ONE (01:30)
[2017-11-01] MEDS ORDERED: GENTAMICIN SULFATE 80 MG/2 ML VIAL ONE (02:11)
[2017-11-01 04:00] VITALS: BP 138/59
[2017-11-01 06:21] LABS: BASOPHILS % (AUTO) 0.5 % (0.0-2.0); EOSINOPHILS # (AUTO) 0.2 K/uL (0.0-0.7); EOSINOPHILS % (AUTO) 1.9 % (0.0-7.0); HEMATOCRIT 35.2 % (31.2-41.9); LYMPHOCYTES # (AUTO) 1.5 K/uL (20.0-40.0); LYMPHOCYTES % (AUTO) 16.5 % (20.5-51.5); MEAN CORPUSCULAR HEMOGLOBIN 24.4 uug (24.7-32.8); MEAN CORPUSCULAR HGB CONC 31 g/dL (32.3-35.6); MEAN CORPUSCULAR VOLUME 78.2 fL (75.5-95.3); MONOCYTES # (AUTO) 0.6 K/uL (2.0-10.0); MONOCYTES % (AUTO) 6.5 % (0.0-11.0); NEUTROPHILS # (AUTO) 6.9 K/uL (1.8-8.9); NEUTROPHILS % (AUTO) 74.6 % (38.5-71.5); PLATELET COUNT (AUTO) 228 K/uL (179-408); WHITE BLOOD COUNT (AUTO) 9.3 K/uL (3.8-11.8)
[2017-11-01 06:22] LABS: CARBON DIOXIDE 31 mmol/L (21-32); CHLORIDE 108 mmol/L (98-107); CREATININE 0.5 mg/dL (0.6-1.3); GLUCOSE 148 mg/dL (74-106); PHOSPHOROUS 2.5 mg/dL (2.5-4.9); POTASSIUM 3.8 mmol/L (3.5-5.1); UREA NITROGEN, BLOOD 20 mg/dL (7-18)
[2017-11-01] MEDS: PANTOPRAZOLE SODIUM 40 MG VIAL IV SCH (06:49)
[2017-11-01] MEDS: GLUCERNA 1.2 1000ML LIQUID GT PRN (08:37)
[2017-11-01] MEDS: Z GUARD REMEDY PASTE 57 GM TUBE TOP PRN (08:38)
[2017-11-01] MEDS: LEVETIRACETAM IV 500 MG in IV DEXTROSE 5% 100 ML IV SCH (08:54)
[2017-11-01 11:46] VITALS: BP 132/50
[2017-11-01] MEDS ORDERED: LEVALBUTEROL HCL NEB 0.63 MG/3 ML NEBU IH PRN (12:00)
[2017-11-01] MEDS ORDERED: LORATADINE 10 MG TABLET GT PRN (12:00)
[2017-11-01] MEDS ORDERED: Medication Not On Formulary EA (Acetaminophen 650 MG) GT PRN (12:00)
[2017-11-01] MEDS ORDERED: MAGNESIUM HYDROXIDE 30 ML LIQUID UDC PO PRN (12:00)
[2017-11-01] MEDS ORDERED: ALBUTEROL SULFATE 2.5 MG/3 ML NEBU NEB PRN (12:15)
[2017-11-01] MEDS ORDERED: IPRATROPIUM BROMIDE 0.5 MG/2.5 ML NEBU NEB PRN (12:15)
[2017-11-01] MEDS ORDERED: ACETAMINOPHEN 650 MG/20.3 ML LIQUID UDC GT PRN (12:30)
[2017-11-01 15:15] VITALS: BP 125/48
[2017-11-01] MEDS ORDERED: Medication Not On Formulary EA (Apixaban (Eliquis) 2.5 MG) GT SCH (17:00)
[2017-11-01 19:30] VITALS: BP 134/62
[2017-11-01] MEDS ORDERED: LEVETIRACETAM 500 MG/5 ML LIQUID UDC NG SCH (21:00)
[2017-11-01] MEDS ORDERED: Medication Not On Formulary EA (Levetiracetam 500 MG) PO SCH (21:00)
[2017-11-01] MEDS ORDERED: METOPROLOL TARTRATE 25 MG TABLET PO SCH (21:00)
[2017-11-02] MEDS ORDERED: GENTAMICIN SULFATE IV ONE (02:00)
[2017-11-02] MEDS ORDERED: DEXTROSE 5% IV ONE (02:00)
[2017-11-02] MEDS ORDERED: AMIODARONE HCL 200 MG TABLET GT SCH (09:00)
== END 2017-11-01 20:10 | DRG 177 ==
LOC: ER 22:34 → TELE 10-28 01:50 → MED 10-28 02:54
PROVIDERS: ADMIT Internal Medicine; ATTEND Internal Medicine
PROC: 0DJ08ZZ Inspection of Upper Intestinal Tract, Via Natural or Artificial Opening Endoscopic (ICD-10-PCS; 2017-10-31)
PROC: 0DH63UZ Insertion of Feeding Device into Stomach, Percutaneous Approach (ICD-10-PCS; principal; 2017-10-31 12:05)
DX: J69.0 Pneumonitis due to inhalation of food and vomit (principal); G93.40 Encephalopathy, unspecified; I50.23 Acute on chronic systolic (congestive) heart failure; Z43.1 Encounter for attention to gastrostomy; N39.0 Urinary tract infection, site not specified; D68.59 Other primary thrombophilia; E44.1 Mild protein-calorie malnutrition; K92.2 Gastrointestinal hemorrhage, unspecified; I69.351 Hemiplegia and hemiparesis following cerebral infarction affecting right dominant side; B37.49 Other urogenital candidiasis; B96.20 Unspecified Escherichia coli [E. coli] as the cause of diseases classified elsewhere; D50.9 Iron deficiency anemia, unspecified; E11.9 Type 2 diabetes mellitus without complications; E78.5 Hyperlipidemia, unspecified; E83.42 Hypomagnesemia; E87.6 Hypokalemia; E88.09 Other disorders of plasma-protein metabolism, not elsewhere classified; F17.210 Nicotine dependence, cigarettes, uncomplicated; G40.909 Epilepsy, unspecified, not intractable, without status epilepticus; I34.0 Nonrheumatic mitral (valve) insufficiency; K21.9 Gastro-esophageal reflux disease without esophagitis; F01.50 Vascular dementia, unspecified severity, without behavioral disturbance, psychotic disturbance, mood disturbance, and anxiety; R13.10 Dysphagia, unspecified; M81.0 Age-related osteoporosis without current pathological fracture; I25.10 Atherosclerotic heart disease of native coronary artery without angina pectoris; Z88.0 Allergy status to penicillin; I11.0 Hypertensive heart disease with heart failure; I69.320 Aphasia following cerebral infarction; M19.90 Unspecified osteoarthritis, unspecified site; K29.70 Gastritis, unspecified, without bleeding; Z79.4 Long term (current) use of insulin
CPT/HCPCS: 36415; 43235; 70030-TC; 71045; 74018; 83605; 83735; 84100; 85025; 85610; 85651; 85730; 87040; 87077; 87086; 92526; 92610; 93005; A4217; A4663; C9113; J0690; J1100; J1450; J1580; J1940; J1953; J1956; J3475; J3480; J3490; J7030; J7042; J7060